=== PATIENT | female | born 1960 | race Caucasian/White ===

== ENCOUNTER 2019-06-07 06:07 | Inpatient (IN) | payer MEDICARE, MEDICAID ==
[~2019-06-07] VITALS: Ht 160 cm; Wt 80.3 kg
[~2019-06-07 06:07] MED LIST: diabetic meds; htn meds
[2019-06-07] MEDS ORDERED: VISCOUS LIDOCAINE 2% 15 ML UDC PO STA (07:38)
[2019-06-07] MEDS ORDERED: DICYCLOMINE 10 MG/5 ML ORAL SYR PO STA (07:38)
[2019-06-07] MEDS ORDERED: MAGNESIUM/ALUMINUM HYDROXIDE/SIMETHICONE 30ML UDC PO STA (07:38)
[2019-06-07 08:03] LABS: BASOPHILS % 0.8 % (0.0-2.0); EOSINOPHILS % 4.3 % (0.0-5.0); HEMATOCRIT. 37.1 % (36.0-48.0); HEMOGLOBIN. 13.3 g/dL (12.0-16.0); LYMPHOCYTES % 21.4 % (20.0-50.0); MEAN CORPUSCULAR HEMOGLOBIN 32.7 pg (28.0-32.0); MEAN PLATELET VOLUME 10.1 fl (7.4-10.4); MONOCYTES % 6.5 % (2.0-8.0); PLATELET 83 x1000/uL (130-400); RED BLOOD CELL COUNT 4.07 mill/uL (4.2-5.4); RED CELL DISTRIBUTION WIDTH 14.1 % (11.6-14.6)
[2019-06-07 08:11] LABS: CHLORIDE 108 mEq/L (98-107)
[2019-06-07] MEDS ORDERED: ASPIRIN 325MG EC TABLET PO ONE (08:30)
[2019-06-07] MEDS ORDERED: ONDANSETRON HCL 4MG/2ML INJ IV PRN (11:00)
[2019-06-07] MEDS ORDERED: CLONIDINE 0.1MG TABLET PO PRN (11:00)
[2019-06-07] MEDS ORDERED: ZOLPIDEM TARTRATE 5MG TABLET PO PRN (11:00)
[2019-06-07] MEDS ORDERED: ACETAMINOPHEN 325MG TABLET PO PRN (11:00)
[2019-06-07] MEDS ORDERED: GUAIFENESIN 200MG/10ML SUGAR FREE UDC PO PRN (11:00)
[2019-06-07] MEDS ORDERED: LORAZEPAM 0.5MG TABLET PO PRN (11:00)
[2019-06-07] MEDS ORDERED: NA PHOS,M-B/NA PHOS,DI-BA ENEMA 118ML PR PRN (11:00)
[2019-06-07] MEDS ORDERED: DOCUSATE SODIUM 100MG CAPSULE PO PRN (11:00)
[2019-06-07] MEDS ORDERED: MAGNESIUM/ALUMINUM HYDROXIDE/SIMETHICONE 30ML UDC PO PRN (11:00)
[2019-06-07] MEDS ORDERED: NITROGLYCERIN 0.4MG TABLET SL SL PRN (11:00)
[2019-06-07] MEDS ORDERED: DEXTROSE 50% WATER 50ML SYRINGE IV PRN (11:00)
[2019-06-07] MEDS ORDERED: TRAMADOL 50MG TABLET PO PRN (11:00)
[2019-06-07] MEDS ORDERED: IPRATROPIUM/ALBUTEROL 0.5-3(2.5)MG/3ML NEB HHN PRN (11:00)
[2019-06-07] MEDS: ENOXAPARIN 40MG/0.4ML SYR SUBCUT SCH (11:50)
[2019-06-07 12:00] VITALS: BP_SYST 152; BP_DIAS 51; BP_DIAS 60
[2019-06-07 12:25] LABS: CANNABINOID URINE SCREEN NEGATIVE (NEGATIVE); METHADONE URINE SCREEN NEGATIVE (NEGATIVE); OPIATES URINE SCREEN NEGATIVE (NEGATIVE); PHENCYCLIDINE URINE SCREEN NEGATIVE (NEGATIVE)
[2019-06-07 12:27] LABS: *BARBITURATES SCREEN URINE NEGATIVE (NEGATIVE); *COCAINE SCREEN URINE NEGATIVE (NEGATIVE)
[2019-06-07 12:28] LABS: *AMPHETAMINES SCREEN URINE NEGATIVE (NEGATIVE)
[2019-06-07 12:29] LABS: *BENZODIAZEPINES SCREEN URINE NEGATIVE (NEGATIVE)
[2019-06-07] MEDS ORDERED: REGADENOSON 0.4 MG/5 ML IV ONE (12:30)
[2019-06-07] MEDS: BLOOD SUGAR DIAGNOSTIC STRIP TEST SCH ×3 (12:40→21:00)
[2019-06-07] MEDS: INSULIN LISPRO 100 UNITS/ML SUBCUT SCH ×3 (13:10→21:00)
[2019-06-07] MEDS: SUCRALFATE 1 G/10 ML UDC PO SCH ×3 (13:12→23:20)
[2019-06-07 14:41] LABS: VITAMIN B12 SERUM 1051 pg/mL (211-911)
[2019-06-07 14:56] LABS: FOLIC ACID (FOLATE) SERUM > 20.00 ng/mL (>5.38)
[2019-06-07] MEDS ORDERED: OMEP20CA14 PO (15:31)
[2019-06-07] MEDS ORDERED: HYDR12.54 PO (15:33)
[2019-06-07 16:00] VITALS: BP 116/50
[2019-06-07 16:01] LABS: TOTAL IRON BINDING CAPACITY 305 ug/dL (250-450)
[2019-06-07 16:02] LABS: LDL CHOLESTEROL 69 mg/dL (5-100)
[2019-06-07 16:03] LABS: CREATINE KINASE 79 IU/L (26-192); HDL CHOLESTEROL 49 mg/dL (40-59)
[2019-06-07 16:05] LABS: CREATINE KINASE MB FRACTION < 1.0 ng/mL (0.5-3.6)
[2019-06-07 20:00] VITALS: BP 126/56
[2019-06-07] MEDS: METOPROLOL TARTRATE 25MG TABLET PO SCH (21:00)
[2019-06-07] MEDS: ZOLPIDEM TARTRATE 5MG TABLET PO PRN (23:20)
[2019-06-08] VITALS: BP 126/58
[2019-06-08 00:19] LABS: CREATINE KINASE 78 IU/L (26-192)
[2019-06-08 00:20] LABS: CREATINE KINASE MB FRACTION < 1.0 ng/mL (0.5-3.6)
[2019-06-08] MEDS: FAMOTIDINE 20MG TABLET PO SCH ×3 (02:54→21:44)
[2019-06-08 04:00] VITALS: BP 127/67
[2019-06-08 06:44] LABS: BASOPHILS % 0.8 % (0.0-2.0); HEMATOCRIT. 38.9 % (36.0-48.0); HEMOGLOBIN. 13.7 g/dL (12.0-16.0); LYMPHOCYTES % 22.5 % (20.0-50.0); MEAN CORPUSCULAR HEMOGLOBIN 32.3 pg (28.0-32.0); MEAN CORPUSCULAR VOLUME 91.9 fL (81.0-99.0); MEAN PLATELET VOLUME 10.7 fl (7.4-10.4); MONOCYTES % 6.3 % (2.0-8.0); NEUTROPHILS % 65.4 % (40.0-76.0); PLATELET 81 x1000/uL (130-400); RED BLOOD CELL COUNT 4.23 mill/uL (4.2-5.4); RED CELL DISTRIBUTION WIDTH 14.4 % (11.6-14.6)
[2019-06-08 06:58] LABS: CHLORIDE 106 mEq/L (98-107)
[2019-06-08 07:09] LABS: PHOSPHORUS 3.5 mg/dL (2.5-4.9)
[2019-06-08] MEDS: BLOOD SUGAR DIAGNOSTIC STRIP TEST SCH ×4 (07:40→21:00)
[2019-06-08] MEDS: SUCRALFATE 1 G/10 ML UDC PO SCH ×4 (07:40→21:44)
[2019-06-08 08:00] VITALS: BP 131/56
[2019-06-08] MEDS: INSULIN LISPRO 100 UNITS/ML SUBCUT SCH ×4 (08:10→21:50)
[2019-06-08] MEDS: METOPROLOL TARTRATE 25MG TABLET PO SCH ×2 (09:00→21:44)
[2019-06-08] MEDS: ENOXAPARIN 40MG/0.4ML SYR SUBCUT SCH (09:00)
[2019-06-08] MEDS ORDERED: REGADENOSON 0.4 MG/5 ML IV ONE (09:28)
[2019-06-08] MEDS ORDERED: MAGNESIUM 2 G PREMIX 50 ML IV ONE (10:30)
[2019-06-08] MEDS: ASPIRIN 325MG EC TABLET PO SCH (11:00)
[2019-06-08 12:00] VITALS: BP 120/57
[2019-06-08] MEDS ORDERED: PNEUMOCOCCAL 23-VAL P-SAC VAC 0.5 ML IM ONE (15:45)
[2019-06-08] MEDS: ZOLPIDEM TARTRATE 5MG TABLET PO PRN (21:44)
[2019-06-09] VITALS: BP 99/54
[2019-06-09 04:00] VITALS: BP 155/74
[2019-06-09] MEDS: SUCRALFATE 1 G/10 ML UDC PO SCH (06:10)
[2019-06-09] MEDS: BLOOD SUGAR DIAGNOSTIC STRIP TEST SCH (06:10)
[2019-06-09] MEDS ORDERED: METF-416 MT (06:48)
[2019-06-09] MEDS ORDERED: ASPI-1158 MT (06:48)
[2019-06-09 07:28] LABS: CHLORIDE 109 mEq/L (98-107)
[2019-06-09 07:31] LABS: BASOPHILS % 0.9 % (0.0-2.0); EOSINOPHILS % 5.6 % (0.0-5.0); HEMATOCRIT. 39.9 % (36.0-48.0); HEMOGLOBIN. 14.2 g/dL (12.0-16.0); LYMPHOCYTES % 24.2 % (20.0-50.0); MEAN CORPUSCULAR HEMOGLOBIN 32.7 pg (28.0-32.0); MEAN CORPUSCULAR VOLUME 91.5 fL (81.0-99.0); MEAN PLATELET VOLUME 10.7 fl (7.4-10.4); MONOCYTES % 7.2 % (2.0-8.0); NEUTROPHILS % 62.1 % (40.0-76.0); PLATELET 75 x1000/uL (130-400); RED BLOOD CELL COUNT 4.36 mill/uL (4.2-5.4); RED CELL DISTRIBUTION WIDTH 14.1 % (11.6-14.6)
[2019-06-09 07:40] LABS: PHOSPHORUS 3.8 mg/dL (2.5-4.9)
[2019-06-09] MEDS: INSULIN LISPRO 100 UNITS/ML SUBCUT SCH (07:49)
[2019-06-09 08:00] VITALS: BP 138/51
[2019-06-09] MEDS: ENOXAPARIN 40MG/0.4ML SYR SUBCUT SCH (09:00)
[2019-06-09 09:33] VITALS: BP 138/51
[2019-06-09] MEDS: ASPIRIN 325MG EC TABLET PO SCH (10:00)
[2019-06-09] MEDS: FAMOTIDINE 20MG TABLET PO SCH (10:00)
[2019-06-09] MEDS: METOPROLOL TARTRATE 25MG TABLET PO SCH (10:00)
== END 2019-06-09 10:30 | disposition home or self-care (01) | DRG 392 ==
LOC: ER 06:07 → 7WST 09:14 → ENRESERV 10:00
PROVIDERS: ADMIT Internal Medicine; ATTEND Internal Medicine
DX: K29.70 Gastritis, unspecified, without bleeding (principal); R07.89 Other chest pain; I10 Essential (primary) hypertension; E78.5 Hyperlipidemia, unspecified; Z79.82 Long term (current) use of aspirin; D69.6 Thrombocytopenia, unspecified; E83.42 Hypomagnesemia; Z79.4 Long term (current) use of insulin; J45.909 Unspecified asthma, uncomplicated; K21.9 Gastro-esophageal reflux disease without esophagitis; E11.9 Type 2 diabetes mellitus without complications
CPT/HCPCS: 36415; 71045; 78452; 80053; 80061; 80305; 80320; 82550; 82553; 82607; 82746; 82962; 83036; 83540; 83550; 83735; 83880; 84100; 84484; 85025; 90732; 93005; 93017; 93306; 93970; 97161; 97165; 99285; A9500; J1650; J1815; J2785; J3475; G0480